=== PATIENT | male | born 1980 | race Caucasian/White ===

== ENCOUNTER 2018-05-23 06:50 | Day surgery (SDC) | payer BC ==
[~2018-05-23 06:50] MED LIST: Ciprofloxacin in D5W 400 MG in Premix Bag 1 BAG IV SCH; Lactated Ringers 1,000 ML IV SCH
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
[2018-05-23] MEDS ORDERED: Bupivacaine 0.5% 10 ML SDV ONE (07:13)
[2018-05-23] MEDS ORDERED: ceFAZolin 1 GM Vial ONE (07:13)
[2018-05-23] MEDS ORDERED: Propofol 200 MG/20 ML SDV ONE (07:17)
[2018-05-23] MEDS ORDERED: Midazolam 1 MG/ML 2 ML SDV ONE (07:17)
[2018-05-23] MEDS ORDERED: Ondansetron 4 MG/2 ML SDV ONE (07:17)
[2018-05-23] MEDS ORDERED: fentaNYL 100 MCG/2 ML SDV ONE (07:17)
[2018-05-23] MEDS ORDERED: Ketorolac 30 MG/ML SDV ONE (07:18)
[2018-05-23] MEDS ORDERED: Rocuronium 10 MG/ML 10 ML Syringe ONE (07:30)
[2018-05-23] MEDS ORDERED: Sugammadex Sodium 200 MG/2 ML VIAL ONE (07:31)
[2018-05-23] MEDS ORDERED: Dexamethasone 4 MG/ML 5 ML MDV ONE (07:48)
[2018-05-23] MEDS ORDERED: Ciprofloxacin in D5W 0 ML ONE (08:27)
[2018-05-23] MEDS ORDERED: Acetaminophen/HYDROcodone 325-5 MG Tab PO PRN (09:03)
[2018-05-23] MEDS ORDERED: Morphine 10 MG/ML Syringe IVPUSH PRN (09:03)
[2018-05-23] MEDS ORDERED: Ondansetron 4 MG/2 ML SDV IVPUSH PRN (09:03)
--- NOTE | 2018-05-23 09:07 | PCM.OPNOTE ---
- General Post-Op/Procedure Note Date of Surgery/Procedure: 05/23/18 Operative Procedure(s): Repair left inguinal hernia with large Bard PerFix plug and patch Pre Op Diagnosis: Reducible left inguinal hernia Post-Op Diagnosis: Same Anesthesia Technique: General ET Tube (ASA II) Primary Surgeon: Jason Lopez Fluid Replacement, Intraop: 600 EBL in mLs: 5 Condition: Good Free Text/Narrative:: DICTATION [id number] CPT CODE 07778
[2018-05-23] MEDS: fentaNYL 100 MCG/2 ML SDV IVPUSH PRN ×3 (09:14→09:26)
[2018-05-23] MEDS ORDERED: Lactated Ringers 1,000 ML IV SCH (09:15)
--- NOTE | 2018-05-23 09:40 | PCM.POSTAN ---
POST ANESTHESIA ASSESSMENT - MENTAL STATUS Mental Status: Alert, Oriented - RESPIRATORY Respiratory Status: Respiratory Rate WNL, Airway Patent, O2 Saturation Stable - CARDIOVASCULAR CV Status: Pulse Rate WNL, Blood Pressure Stable - GASTROINTESTINAL GI Status: No Symptoms - POST OP HYDRATION Hydration Status: Adequate & Stable
[2018-05-23 10:31] VITALS: BP 103/48
--- NOTE | 2018-05-23 10:48 | PCM48HPAN ---
Post Anesthesia Note - EVALUATION WITHIN 48HRS OF ANESTHETIC Vital Signs in Normal Range: Yes Patient Participated in Evaluation: Yes Respiratory Function Stable: Yes Airway Patent: Yes Cardiovascular Function Stable: Yes Hydration Status Stable: Yes Pain Control Satisfactory: Yes Nausea and Vomiting Control Satisfactory: Yes Mental Status Recovered: Yes Resp Rate: 16
--- NOTE | 2018-05-23 15:43 | OR ---
SURGEON: Jason Lopez M.D. DATE OF PROCEDURE: 05/23/2018 OPERATION PERFORMED: Repair, left inguinal hernia with large Bard PerFix plug and patch. ANESTHESIA: General endotracheal. ASA CLASSIFICATION: 2. PREOPERATIVE DIAGNOSIS: Symptomatic reducible left inguinal hernia. POSTOPERATIVE DIAGNOSIS: Symptomatic reducible left inguinal hernia. ESTIMATED BLOOD LOSS: 5 mL. INTRAOPERATIVE FLUID REPLACEMENT: 600 mL of crystalloid. DESCRIPTION OF PROCEDURE: The patient was taken to the operating room and placed on the operating table in the supine position. Time-out was called for appropriate identification of the patient and procedure. Thigh-high TEDs and sequential compression boots were placed. The surgical site had been marked prior to the patient entering the operating room. Following satisfactory attainment of general endotracheal anesthesia, the abdomen was prepped with DuraPrep solution and sterile drapes were applied. The skin incision was marked out on the left inguinal crease. The skin was then infiltrated with 0.5% Marcaine solution. The skin incision was made and deepened through the subcutaneous tissue obtaining hemostasis with the use of electrocautery. Dissection was carried down to the external oblique fascia. This was opened in the direction of its fibers and retracted out of harm's way. The hernia sac and spermatic cord were identified and encircled with a [place] drain. The hernia sac was then dissected away from the spermatic cord. The hernia sac was able to be reduced. The defect was moderate-sized. A large Bard PerFix plug and patch was brought to the operating table and soaked in saline solution. The plug was placed into the internal ring and secured with an 0 Ethibond suture. The patch was then placed over the floor of the inguinal canal and secured with multiple interrupted 0 Ethibond sutures inferiorly and medially to Toby's ligament transitioning to the inguinal ligament and superiorly to the transversalis fascia. The wings of the patch were brought around the cord and secured laterally with an 0 Ethibond suture. All sutures except the lateral most suture were secured and the patient was given a Valsalva maneuver to 40 cm of water. The repair was solid and I did not see any bulge. Care was also taken not to impinge on the cord as the suture was tied down. The wound was then inspected for hemostasis and small bleeding sites were electrocoagulated. The cord was returned to its anatomic location. The external oblique fascia was then reapproximated with running 3-0 Vicryl. Jhoana's fascia was closed with 3-0 Vicryl and the skin edges were reapproximated with subcuticular 4-0 Monocryl reinforced with Steri-Strips. Sterile Tegaderm pad was placed as a dressing. Sponge, needle, and instrument counts were all correct. The patient tolerated the procedure well. Following emergence from anesthesia and extubation, the patient was taken to recovery room in stable condition. OTDD / GENE /[id number]
== END 2018-05-23 10:59 | disposition home or self-care (01) ==
LOC: MW.SDS 06:50
PROVIDERS: ATTEND Surgery
DX: K40.90 Unilateral inguinal hernia, without obstruction or gangrene, not specified as recurrent (principal); J45.909 Unspecified asthma, uncomplicated; F41.9 Anxiety disorder, unspecified; F90.9 Attention-deficit hyperactivity disorder, unspecified type; Z79.899 Other long term (current) drug therapy; Z88.2 Allergy status to sulfonamides; Z88.0 Allergy status to penicillin
CPT/HCPCS: 49505; A9270; J0131; J0744; J1100; J1885; J2250; J2405; J2704; J3010; J3490; J7120; 00840; C1781; J0690